=== PATIENT | female | born 1965 | race Caucasian/White ===

== ENCOUNTER → 2023-06-01 14:19 | Outpatient (POV) | payer BC, SELFPAY ==
--- NOTE | 2023-06-01 14:22 | EXP.PAIN.OV ---
HPI Data of Consult Patient: new to practice Consult date: 06/01/23 Requesting Physician: Liliana Barlow APRN Primary Care Provider: Anuradha Nathan APRN Consult Narrative Reason for consult: Shingles History of present illness: Ms. Huerta is a 57 year old female who presents today as a new patient. She is a referral from Anuradha Nathan's office. Today she rates her pain a 0 out of 10. Patient presents today for evaluation of shingles. Patient states this is been going on for over 1 month all along the left side of her face. Patient does state that she was started on acyclovir medication initially however it did cause some stomach upset. She states that she has also tried corticosteroid Topical cream along her face and was given a IM steroid shot in her PCPs office on Monday. She states that the rash does not seem to go away and that she recently went to the eye doctor and it is on her eyelid however at this time it is not into her left eye. Patient is interested in any help we may be able to provide. Her Osvaldo is [id number]. Its been reviewed and appropriate. CC: Liliana Barlow APRN [facility] Disclaimer: The information contained in this section may have been updated after the patient was seen, as this information can be updated by other users. Medical History (Updated 06/01/23 @ 15:09 by Liliana Barlow APRN) Generalized anxiety disorder Major depressive disorder Social History Smoking Status: Never smoker alcohol intake: never substance use type: denies use current occupational status: employed Travel in the last 8 weeks: None household members: spouse housing: house number of children: 2 Review of Systems Review of Systems Review of systems:: pertinent systems reviewed and negative unless documented below Review of systems (narrative): Review of Systems: General: No recent weight changes, no fever, no sleep disturbances Respiratory: No cough, no shortness of air, no recurring pulmonary infections Cardiovascular/peripheral vascular: No chest pain, no palpitations, no edema, no shortness of breath Gastrointestinal: No new onset incontinence, normal bowel movements reported Genitourinary: No new onset incontinence Musculoskeletal: Left thigh/facial rash related to shingles Psychiatric: [Normal mood/affect] Neurological: [Denies weakness in extremities], [denies balance issues] Meds Home Medications and Allergies Home Medications Medication Instructions Recorded Confirmed Type azelastine-fluticasone 137 mcg-50 1 spray intranasal BID #23 grams 08/18/19 05/24/23 Rx mcg/spray nasal spray (Dymista) azelastine-fluticasone 137 mcg-50 1 spray intranasal BID #23 grams 08/18/19 05/24/23 Rx mcg/spray nasal spray (Dymista) dextromethorphan-guaifenesin 30 1 tab PO Q12H #60 tabs 08/18/19 05/24/23 Rx mg-600 mg tablet extended [id number] hr (Mucinex DM) vortioxetine 20 mg tablet 20 mg PO DAILY #30 tabs 03/15/23 05/24/23 Rx (Trintellix) New Prescriptions to Start Prescriptions: Allergies Allergy/AdvReac Type Severity Reaction Status Date / Time No Known Allergies Allergy Verified 03/15/23 09:00 Objective Narrative: Physical Exam: General: Alert and oriented x3, no acute distress, pleasant and cooperative Lungs: Respirations even and unlabored, symmetrical chest expansion Eyes: PERRL Musculoskeletal: Flexion and extension of lumbar spine within normal limits Neurological: Speech clear, no gross sensory deficit Skin: Red indurated rash noted along the patient's left upper and lower eyelid as well as left cheek, chin and left naris Assessment and Plan *Assessment and plan (1) Herpes zoster: Status: Acute Qualifiers: Herpes zoster complications: with nervous system involvement Herpes zoster neurologic complication detail: other postherpetic nervous system involvement Qualified Code(s): B02.29 - Other postherpetic nervous system involvement
[2023-06-01 15:11] VITALS: BP 131/84; PULSE 70; RESP 20; O2SAT 99; BMI 30.9
== END ==
PROVIDERS: PCP Nurse Practitioner Family; Visit Provider Nurse Practitioner Family
DX: B02.29 Other postherpetic nervous system involvement (principal)
CPT/HCPCS: 99202; G0463

== ENCOUNTER 2023-06-06 08:41 | Day surgery (SDC) | payer BC, SELFPAY ==
[2023-06-06 08:57] VITALS: BP 155/88; PULSE 75; RESP 20; TEMP 36.8; O2SAT 98; BMI 31.2
--- NOTE | 2023-06-06 09:33 | EXP.PAIN.PRO ---
Procedure Date: 06/06/23 Time: 09:22 Anesthesiologist:: Naeem Mora CRNA Complications:: None Pre-procedure Diagnosis:: Left supraorbital and facial shingles outbreak. Post-procedure Diagnosis:: Same. Indications for Procedure:: Patient is a very pleasant 57-year-old female that comes our clinic today for supraorbital nerve block secondary to left facial jade and supraorbital shingles outbreak. Procedure Details:: Details of the procedure explained to the patient. The patient taken the procedure room placed in sitting position. The area over the left supraorbital nerve was cleansed using alcohol swab. Using 30-gauge needle a solution containing 0.25% Marcaine +1% lidocaine and 40 mg of Depo-Medrol was injected supraorbitally in a fanning fashion with 1 injection site. Patient tolerated procedure without difficulty. No complications Plan and Disposition:: Patient was discharged without incident. She will return to see us in 1 week if in fact she is continuing to have issues with shingles outbreak.
[2023-06-06 09:34] VITALS: BP 142/74; PULSE 62; RESP 18; O2SAT 99
== END 2023-06-06 09:34 | disposition home or self-care (01) ==
PROVIDERS: PCP Nurse Practitioner Family; Visit Provider Nurse Anesthetist, Certified Registered
DX: B02.8 Zoster with other complications (principal)
CPT/HCPCS: 64400

== ENCOUNTER 2023-06-13 10:46 | Day surgery (SDC) | payer BC, SELFPAY ==
[2023-06-13 11:03] VITALS: BP 139/84; PULSE 64; RESP 20; TEMP 36.4; O2SAT 99; BMI 30.9
--- NOTE | 2023-06-13 11:48 | PC.NURSE ---
No injection today.
--- NOTE | 2023-06-13 13:25 | A.OFFVIS_ITS ---
[facility] Pain Management SOAP Note Subjective:: Patient is a pleasant 58-year-old female that returns our clinic today for second facial nerve block for suspected shingles covering the left cheek. Patient had facial nerve block 1 week ago. Patient reports minimal to no relief. I recommend to the patient she see dermatology for opinion. I will set this up for her. We would not do injection today. [facility] Disclaimer: The information contained in this section may have been updated after the patient was seen, as this information can be updated by other users. Medical History Generalized anxiety disorder Major depressive disorder Family History Other No significant family history Social History (Updated 06/13/23 @ 11:04 by Dianna Robles RN) Smoking Status: Never smoker alcohol intake: never substance use type: denies use current occupational status: other Travel in the last 8 weeks: None household members: spouse housing: house number of children: 2
== END 2023-06-13 11:45 | disposition home or self-care (01) ==
LOC: SC.PAINP 10:46
PROVIDERS: PCP Nurse Practitioner Family; Visit Provider Nurse Anesthetist, Certified Registered
DX: B02.8 Zoster with other complications (principal); Z53.8 Procedure and treatment not carried out for other reasons
CPT/HCPCS: 99212; G0463

== ENCOUNTER 2024-11-11 10:00 | Outpatient (POV) | payer BC, SELFPAY ==
--- NOTE | 2024-11-11 10:36 | A.OFFVIS_ITS ---
HPI Data of Consult Patient: new to practice Consult date: 11/11/24 Requesting Physician: Liliana Barlow APRN Primary Care Provider: Anuradha Nathan APRN Consult Narrative Reason for consult: Low back pain, left hip pain, tailbone pain History of present illness: Ms. Huerta is a 59 year old female who presents today as a new patient. She is a referral from Anuradha Nathan's office. Today she rates her pain 8 7 out of 10. Patient states her pain is all in her low back along the left side and goes into her left hip and buttocks area. She states that she does have some tailbone pain. Patient states this is going on for more than 3 months unrelated to any specific trauma or injury. She states the pain is a chronic aching sensation and will be very intense with certain movements. She states turning in certain directions or prolonged positioning really aggravates her pain. Patient states the pain does interfere with her ability perform activities of daily living such as cooking and cleaning. Patient did have an x-ray at [place]. She states she has not had any surgery, injections or topicals re garding this pain. Patient does state that she did have weight loss surgery in the past and she is very leery about certain medications due to this. 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 Her Osvaldo has been reviewed and is appropriate. CC: Liliana Barlow APRN [facility] Disclaimer: The information contained in this section may have been updated after the patient was seen, as this information can be updated by other users. Medical History (Updated 11/11/24 @ 10:40 by Liliana Barlow APRN) Major depressive disorder Generalized anxiety disorder Family History Other No significant family history Social History (Updated 06/13/23 @ 11:04 by Dianna Robles RN) Smoking Status: Never smoker alcohol intake: never substance use type: denies use current occupational status: other Travel in the last 8 weeks: None household members: spouse housing: house number of children: 2 Review of Systems Review of Systems Review of systems:: pertinent systems reviewed and negative unless documented below Review of systems (narrative): Review of Systems: General: No recent weight changes, no fever, no sleep disturbances Respiratory: No cough, no shortness of air, no recurring pulmonary infections Cardiovascular/peripheral vascular: No chest pain, no palpitations, no edema, no shortness of breath Gastrointestinal: No new onset incontinence, normal bowel movements reported Genitourinary: No new onset incontinence Musculoskeletal: Low back pain, left hip pain, tailbone pain, buttocks pain Psychiatric: [Normal mood/affect] Neurological: [Denies weakness in extremities], [denies balance issues] Meds Home Medications and Allergies Home Medications ?Medication ?Instructions ?Recorded ?Confirmed ?Type semaglutide (weight loss) 1.7 1.7 mg SQ WEEKLY Weight Loss 06/01/23 11/20/23 History mg/0.75 mL subcutaneous pen injector (Wegovy) vortioxetine 5 mg tablet 5 mg PO DAILY #30 tabs 01/08/24 01/08/24 Rx (Trintellix) New Prescriptions to Start Prescriptions: Allergies Allergy/AdvReac Type Severity Reaction Status Date / Time No Known Allergies Allergy Verified 01/08/24 11:04 Objective Narrative: Physical Exam: General: Alert and oriented x3, no acute distress, pleasant and cooperative Lungs: Respirations even and unlabored, symmetrical chest expansion Eyes: PERRL Musculoskeletal: Flexion and extension of lumbar [spine] somewhat guarded secondary to pain, [antalgic gait noted] point tenderness along left SI with positive left Toni's, Camilla's, Gaenslen's, compression and distraction exam Neurological: Speech clear, no gross sensory deficit Additional findings Additional findings: X-ray imaging left hip October 29, 2024 findings no acute fracture or dislocation. Hip joint spaces are well-preserved. 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 There is moderate degenerative disc disease at L4-L5. No soft tissue abnormality is identified Assessment and Plan *Assessment and plan (1) Low back pain: Status: Acute Category: Medical Code(s): M54.50 - Low back pain, unspecified (2) Left hip pain: Status: Acute Category: Medical Code(s): M25.552 - Pain in left hip (3) Sacroiliitis: Status: Acute Category: Medical Code(s): M46.1 - Sacroiliitis, not elsewhere classified Plan Patient is experiencing worsening pain along the low back and left hip. They did have limited range of motion of the lumbar spine along with point tenderness along left SI joints and a positive left Toni's, Camilla's, Gaenslen's, compression and distraction exam. I did discuss with the patient that I do believe they would benefit from left SI injections. Risk and benefits were discussed with the patient and they would like to proceed forward with this option. Patient has had x-ray imaging that did show osteoarthritic changes in the left SI joint. Patient has tried and failed conservative therapy including continued at home stretching exercise for longer than 12 weeks. Patient has had this pain for longer than 3 months and this will be a diagnostic injection with less than 1 mL of solution to be injected. I did career and guidance counselor the patient that she can take Tylenol and that generally is safe with her gastric bypass surgery. I will also order the patient a compounded cream. Patient will be scheduled for left SI injection under fluoroscopy. Patient has been instructed to contact the clinic with any concerns before the next appointment. Dr. Pena has reviewed this note and agrees with this plan of care. This note was dictated using voice recognition software and make contain errors or omissions. All injections are used with Lidocaine or Bupivacaine and Depo Medrol.
[2024-11-11 11:09] VITALS: BP 115/65; PULSE 60; RESP 18; O2SAT 99; BMI 29.9
== END 2024-11-11 23:59 | disposition home or self-care (01) ==
LOC: SC.PAIN 10:01
PROVIDERS: PCP Nurse Practitioner Family; Visit Provider Nurse Practitioner Family
DX: M54.50 Low back pain, unspecified (principal); M25.552 Pain in left hip; M46.1 Sacroiliitis, not elsewhere classified; Z73.89 Other problems related to life management difficulty
CPT/HCPCS: 99202; G0463